=== PATIENT | female | born 1985 | race Caucasian/White ===

== ENCOUNTER 2018-12-30 11:06 | Outpatient (CLI) | payer OTHER | END 2018-12-30 13:06 | disposition home or self-care (01) | LOC: RX STUDY 11:06 | DX: N91.2 Amenorrhea, unspecified (principal); R10.2 Pelvic and perineal pain ==

== ENCOUNTER 2019-02-01 05:19 | Day surgery (SDC) | payer OTHER | END 2019-02-01 14:09 | disposition home or self-care (01) | LOC: CIR.AMB 05:19 | DX: N84.0 Polyp of corpus uteri (principal) ==

== ENCOUNTER 2022-07-11 09:10 | Outpatient (CLI) | payer OTHER | END 2022-07-11 09:37 | disposition home or self-care (01) | LOC: MAMO-SONO 09:10 | PROVIDERS: ATTEND Obstetrics & Gynecology | DX: N94.0 Mittelschmerz (principal); R10.2 Pelvic and perineal pain; N94.89 Other specified conditions associated with female genital organs and menstrual cycle; N63.0 Unspecified lump in unspecified breast; N64.59 Other signs and symptoms in breast; N64.9 Disorder of breast, unspecified; N91.2 Amenorrhea, unspecified ==

== ENCOUNTER 2022-07-29 05:57 | Day surgery (SDC) | payer OTHER ==
[~2022-07-29] VITALS: Ht 148.6 cm; Wt 54.0 kg
== END 2022-07-29 17:50 | disposition home or self-care (01) ==
LOC: CIR.AMB 05:57
PROVIDERS: ATTEND Obstetrics & Gynecology
DX: N93.8 Other specified abnormal uterine and vaginal bleeding (principal); N84.0 Polyp of corpus uteri; Z20.822 Contact with and (suspected) exposure to COVID-19

== ENCOUNTER 2023-11-25 07:06 | Outpatient (CLI) | payer OTHER ==
[~2023-11-25 07:06] MED LIST: BACTRIM DS TAB1 EACH PO; KETO10TA2 PO; ONDANSETRON ODT4 MG SL; TAMS0.4C PO
== END 2023-11-25 07:22 | disposition home or self-care (01) ==
LOC: TOM 07:06
PROVIDERS: ATTEND Urology
DX: R31.0 Gross hematuria (principal); R31.29 Other microscopic hematuria; R10.11 Right upper quadrant pain; N23 Unspecified renal colic; R30.0 Dysuria; R39.16 Straining to void; R39.15 Urgency of urination; R73.9 Hyperglycemia, unspecified; Z03.89 Encounter for observation for other suspected diseases and conditions ruled out

== ENCOUNTER 2024-06-16 07:05 | Outpatient (CLI) | payer OTHER | END 2024-06-16 07:25 | disposition home or self-care (01) | LOC: MAMO-SONO 07:05 | PROVIDERS: ATTEND Obstetrics & Gynecology | DX: N63 Unspecified lump in breast (principal); N64.59 Other signs and symptoms in breast; N84.9 Polyp of female genital tract, unspecified; R10.2 Pelvic and perineal pain ==

== ENCOUNTER 2024-08-02 07:07 | Outpatient (CLI) | payer OTHER | END 2024-08-02 07:13 | disposition home or self-care (01) | LOC: SONOGRAMA 07:07 | PROVIDERS: ATTEND Urology | DX: R31.0 Gross hematuria (principal); N20.0 Calculus of kidney; R31.29 Other microscopic hematuria; Z87.442 Personal history of urinary calculi; D25.9 Leiomyoma of uterus, unspecified; M41.00 Infantile idiopathic scoliosis, site unspecified; Z03.89 Encounter for observation for other suspected diseases and conditions ruled out ==

== ENCOUNTER 2025-04-01 07:11 | Outpatient (CLI) | payer OTHER | END 2025-04-01 07:12 | disposition home or self-care (01) | LOC: RAD 07:11 | PROVIDERS: ATTEND Urology | DX: N20.0 Calculus of kidney (principal); R31.29 Other microscopic hematuria; Z87.442 Personal history of urinary calculi; D25.9 Leiomyoma of uterus, unspecified; M41.00 Infantile idiopathic scoliosis, site unspecified; Z03.89 Encounter for observation for other suspected diseases and conditions ruled out ==